=== PATIENT | male | born 1975 | race Asian ===

== ENCOUNTER 2020-11-01 13:25 | Emergency (ER) | payer OTHER ==
[~2020-11-01] VITALS: Ht 167.6 cm; Wt 63.5 kg
[2020-11-01 13:32] VITALS: Ht 167.6 cm; Wt 63.5 kg
[2020-11-01 15:50] VITALS: BP 109/70
== END 2020-11-01 15:37 | disposition home or self-care (01) ==
LOC: ED 13:25
DX: U07.1 COVID-19 (principal); R19.7 Diarrhea, unspecified; E78.00 Pure hypercholesterolemia, unspecified